=== PATIENT | male | born 1960 | race African-American/Black ===

== ENCOUNTER 2017-01-01 16:03 | Emergency (ER) | payer BC ==
[2017-01-01 16:27] VITALS: BP 142/81
--- NOTE | 2017-01-01 17:02 | UC ---
Respiratory Complaint HPI - HPI Summary HPI Summary: Started with coughing and nasal congestion about a month ago. Says he has continued to have "hot and cold chills" and feel ill the whole time. Now has increasing pain and pressure in face and increased coughing. - History of Current Complaint Chief Complaint: UCRespiratory Stated Complaint: FEVER, AND COUGH Time Seen by Provider: 01/01/17 16:45 Hx Obtained From: Patient Onset/Duration: Gradual Onset, Lasting Weeks Timing: Constant Severity Initially: Moderate Severity Currently: Moderate Character: Cough: Productive Aggravating Factors: Nothing Alleviating Factors: OTC Meds Associated Signs And Symptoms: Positive: URI, Nasal Congestion - Allergies/Home Medications Allergies/Adverse Reactions: Allergies Allergy/AdvReac Type Severity Reaction Status Date / Time No Known Allergies Allergy Verified 08/23/15 11:06 PMH/Surg Hx/FS Hx/Imm Hx Endocrine History Of: Denies: Diabetes, Thyroid Disease, Hyperthyroidism, Hypothyroidism, Dyslipidemia Cardiovascular History Of: Reports: Cardiac Disorders - POSSIBLE LEAKY VALVE, Hypertension Denies: Pacemaker/ICD, Myocardial Infarction, Congestive Heart Failure, Atrial Fibrillation, Deep Vein Thrombosis, Bleeding Disorders Respiratory History Of: Reports: Asthma Denies: COPD, Bronchitis, Pneumonia, Pulmonary Embolism GI/ History Of: Denies: Gastroesophageal Reflux, Ulcer, Gastrointestinal Bleed, Gall Bladder Disease, Kidney Stones, Diverticulitis, Renal Disease, Urosepsis Neurological History Of: Denies: TIA, CVA, Dementia, Seizures, Migraine Psychological History Of: Denies: Anxiety, Depression, Bipolar Disorder, Schizophrenia, Post Traumatic Stress Disorder Cancer History Of: Denies: Lung Cancer, Colorectal Cancer, Breast Cancer, Prostate Cancer, Cervical Cancer Other History Of: Negative For: HIV, Hepatitis B, Hepatitis C - He tested positive for hep C. He took Rx-clearing virus 2002, Anticoagulant Therapy - Surgical History Surgical History: Yes Surgery Procedure, Year, and Place: Lumbar surgery - 1998. wisdom teeth - Family History Known Family History: Positive: Cardiac Disease, Hypertension - Social History Alcohol Use: None Substance Use Type: None Smoking Status (MU): Light Every Day Tobacco Smoker Type: Cigarettes Amount Used/How Often: 1/2 PPD - Immunization History Most Recent Influenza Vaccination: never Most Recent Tetanus Shot: up to date Review of Systems Constitutional: Chills, Fatigue Skin: Negative Eyes: Negative ENT: Nasal Discharge Respiratory: Cough Cardiovascular: Negative Gastrointestinal: Negative Genitourinary: Negative Motor: Negative Neurovascular: Negative Musculoskeletal: Negative Neurological: Negative Psychological: Negative All Other Systems Reviewed And Are Negative: Yes Physical Exam Triage Information Reviewed: Yes Appearance: Well-Appearing, No Pain Distress, Well-Nourished Vital Signs: Initial Vital Signs Temp 99.4 F 01/01/17 16:23 Pulse 84 01/01/17 16:23 Resp 16 01/01/17 16:23 BP 142/81 01/01/17 16:23 Pulse Ox 97 01/01/17 16:23 Vital Signs Reviewed: Yes Eye Exam: Normal Eyes: Positive: Conjunctiva Clear ENT: Positive: Hearing grossly normal, Pharynx normal, Nasal congestion, Nasal drainage, TMs normal Dental Exam: Normal Neck exam: Normal Neck: Positive: Supple, Nontender, No Lymphadenopathy Respiratory Exam: Normal Respiratory: Positive: Chest non-tender, Lungs clear, Normal breath sounds, No respiratory distress, No accessory muscle use Cardiovascular: Positive: No Murmur Musculoskeletal Exam: Normal Neurological Exam: Normal Psychological Exam: Normal Skin Exam: Normal UC Diagnostic Evaluation - Laboratory O2 Sat by Pulse Oximetry: 97 Respiratory Course/Dx - Differential Dx/Diagnosis Provider Diagnoses: bacterial sinusitis Discharge - Discharge Plan Condition: Stable Disposition: HOME Prescriptions: Amoxicillin/Clavulanate TAB* [Augmentin TAB 875*] 875 mg PO BID #14 tab Guaifenesin-Codeine [Guaiatussin AC] 5 - 10 ml PO BEDTIME #120 ml MDD 10 Patient Education Materials: Rhinosinusitis (ED), Premature Atrial Contractions (ED) Forms: *Work Release Referrals: Selvin Barraza MD [Medical Doctor] - 2 Weeks Lady Mejia MD [Primary Care Provider] - If Needed
--- NOTE | 2017-01-01 17:37 | RAD ---
INDICATION: Cough and fever for one month. History of tobacco use. COMPARISON: October 09, 2016 TECHNIQUE: Dual energy PA and routine lateral views of the chest were obtained. REPORT: Elevated lung volumes and mild prominence of the interstitial markings. No focal pulmonary lesion, alveolar consolidation, pleural effusion, pneumothorax. The heart, pulmonary vasculature, and mediastinal contours are unremarkable. IMPRESSION: Stigmata of chronic obstructive pulmonary disease. No acute cardiopulmonary process evident.
== END 2017-01-01 18:04 | disposition home or self-care (01) ==
LOC: UCEAST 16:03
DX: J32.9 Chronic sinusitis, unspecified (principal); F17.210 Nicotine dependence, cigarettes, uncomplicated
CPT/HCPCS: 71020; 93005; 99212; G0463

== ENCOUNTER 2017-06-01 13:52 | Emergency (ER) | payer SELFPAY ==
[2017-06-01] MEDS ORDERED: Morphine INJ* 2 MG/ML 1 ML SYRINGE IV ONE ×2 (14:19→14:23)
[2017-06-01] MEDS ORDERED: NS 0.9% 1000 ML* 1,000 ML IV ONE (14:19)
[2017-06-01 14:30] VITALS: BP 173/94
--- NOTE | 2017-06-01 14:34 | UC ---
bonnie Noe Timothy, scribed for Jared Ro MD on 06/01/17 at 1406 . Truncal Trauma HPI - HPI Summary HPI Summary: Rob Chairez is a 56 yo male presenting to [facility] today with 10/10 pain in his chest wall and teeth since falling yesterday. He states he lost consciousness yesterday after a "one-hitter" which caused him to cough, and when he bent over to catch his breath he passed out. He states he hit his face on either the ground or a bench while unconscious. He reportedly was unable to verbalize to his partner where his pain was S/P the incident. She states that while she did not see any seizure activity, it is possible that this was his postictal state. His pain worsens with movement and deep breaths. He self-medicated with hydrocodone after the incident last night. He denies any neck pain. His MHx includes HTN, asthma, tobacco use, Hep C. - History Of Current Complaint Stated Complaint: FELL CHEST/MOUTH INJURY Time Seen by Provider: 06/01/17 14:01 Hx Obtained From: Patient Onset/Duration: Sudden Onset Onset Of Pain: Immediate Severity Initially: Moderate Severity Currently: Moderate Pain Intensity: 10 Pain Scale Used: 0-10 Numeric Mechanism Of Injury: Fall From A Standing Position Aggravating Factor(s): Movement, Deep Breathing Associated Signs And Symptoms: Positive: Chest Pain - Allergies/Home Medications Allergies/Adverse Reactions: Allergies Allergy/AdvReac Type Severity Reaction Status Date / Time No Known Allergies Allergy Verified 08/23/15 11:06 Home Medications: Home Medications Hydrocodone/Acetamin 10/325(NF [[place] 10/325 (NF)] 1 tab PO PRN 06/01/17 [ History] PMH/Surg Hx/FS Hx/Imm Hx Cardiovascular History: Hypertension Respiratory History: Asthma Other History Of: Hepatitis C - He tested positive for hep C. He took Rx- clearing virus 2002 Negative For: HIV, Hepatitis B, Anticoagulant Therapy - Surgical History Surgical History: Yes Surgery Procedure, Year, and Place: Lumbar surgery - 1998. wisdom teeth - Family History Known Family History: Positive: Cardiac Disease, Hypertension - Social History Alcohol Use: None Substance Use Type: Cocaine, Marijuana Substance Use Comment - Amount & Last Used: every day Smoking Status (MU): Light Every Day Tobacco Smoker Type: Cigarettes Amount Used/How Often: 1/2 PPD - Immunization History Most Recent Influenza Vaccination: never Most Recent Tetanus Shot: up to date Review of Systems Constitutional: Negative Skin: Negative Eyes: Negative ENT: Other - teeth pain Respiratory: Negative Cardiovascular: Chest Pain - trauma Gastrointestinal: Negative Genitourinary: Negative Motor: Negative Neurovascular: Negative Musculoskeletal: Negative Neurological: Other - syncope Psychological: Negative All Other Systems Reviewed And Are Negative: Yes Physical Exam Triage Information Reviewed: Yes Vital Signs: Initial Vital Signs Temp 98.8 F 06/01/17 14:23 Pulse 67 06/01/17 14:23 Resp 16 06/01/17 14:23 BP 173/94 06/01/17 14:23 Pulse Ox 98 06/01/17 14:23 Vital Signs Reviewed: Yes - Additional Comments The patient is well-nourished in no acute distress and in no acute pain. The skin is warm and diaphoretic and skin color reflects adequate perfusion. HEENT: The head is normocephalic and atraumatic. The pupils are equal and reactive. The conjunctivae are clear and without drainage. Nares are patent and without drainage. Mouth reveals moist mucous membranes and the throat is without erythema and exudate. The external ears are intact. The ear canals are patent and without drainage. The tympanic membranes are intact. Front teeth avulsed, laceration left side of lip. There is no racoon's sign, no willis's sign, no hemotympanum. Neck is supple with full range of motion and non-tender. There are no carotid bruits. There is no neck vein distension. Respiratory: Lungs are clear to auscultation, there are diminished breath sounds. Cardiovascular: Heart is regular rate and rhythm. There is no murmur or rub auscultated. There is no peripheral edema and pulses are symmetrical and equal. Abdomen: The abdomen is soft and non-tender. There are normal bowel sounds heard in all four quadrants and there is no organomegaly palpated. Musculoskeletal: There is no back pain noted. Extremities are non-tender with full range of motion. There is good capillary refill. There is no peripheral edema or calf tenderness elicited. There is marked tenderness of the right lateral ribs, RUQ, and right epigastric region. There is no hip pain or extremity trauma. Neurological: Patient is alert and oriented to person, place and time. The patient has symmetrical motor strength in all four extremities. Cranial nerves are grossly intact. Deep tendon reflexes are symmetrical and equal in all four extremities. Psychiatric: The patient has an appropriate affect and does not exhibit any anxiety or depression. Diagnostics - EKG Cardiac Rate: NL - 1354: NSR @ 65 BPM, left axis, no STEMI Truncal Trauma Course/Dx - Course Course Of Treatment: Rob Chairez is a 56 yo male presenting to [facility] with 10/10 pain in his ribs and teeth after a syncopal episode yesterday when he hit his head and chest on a bench. Pt medication list reviewed this visit. After clinical examination, Pt advised to present to [facility] for evaluation as services provided by urgent care will not be sufficient to evaluate Pt. Due to syncopal episode, there is cocnern for Pt's cardiac and neurological status. Pt has injuries to chest and abd, and there is concern his condition will deteriorate if he travels to [facility] by private car. Uncertain of extent of Pt's injuries and failure to transport Pt in a timely manner may lead to worsening of his condition. Pt should be monitored at all times due to his syncopal episode. Pt accepts offer of EMS for transport to [facility]. He will be transferred to [facility] by ambulance. - Differential Dx/Diagnosis Differential Diagnosis/HQI/PQRI: Cardiac Contusion, Chest Wall Contusion, Liver Trauma, Pulmonary Contusion, Rib Fracture, Other - syncope, substance abuse Provider Diagnoses: syncope, facial trauma, chest trauma, abdominal trauma Discharge - Discharge Plan Condition: Stable Disposition: TRANS HIGHER L OF CARE FAC Discharge Disposition Comment: transfer to [facility] by ambulance Referrals: Lady Mejia MD [Primary Care Provider] - The documentation as recorded by the bonnie cameron Timothy accurately reflects the service I personally performed and the decisions made by , Jared Ro MD.
== END 2017-06-01 14:50 | disposition short-term general hospital (02) ==
LOC: UCEAST 13:52
DX: R55 Syncope and collapse (principal); S29.9XXA Unspecified injury of thorax, initial encounter; S39.91XA Unspecified injury of abdomen, initial encounter; S09.93XA Unspecified injury of face, initial encounter; Y04.0XXA Assault by unarmed brawl or fight, initial encounter; Y93.9 Activity, unspecified; Y92.9 Unspecified place or not applicable; Y99.9 Unspecified external cause status; Z72.0 Tobacco use
CPT/HCPCS: 93005; 96361; 96374; 99213; G0463; J2270

== ENCOUNTER 2017-06-01 15:26 | Emergency (ER) | payer SELFPAY ==
--- NOTE | 2017-06-01 16:18 | ED ---
Syncope/Near Syncope - HPI Summary HPI Summary: 56 male presenting to ED from with 10/10 pain in his right chest/rib/RUQ and front teeth since falling yesterday 05/31/17. He states he lost consciousness yesterday after a "one-hitter" of marijuana per patient which caused him to cough, and when he bent over to catch his breath he passed out. He states he hit his face on either the ground or a bench while unconscious. He reportedly was unable to verbalize to his partner where his pain was S/P the incident. Unknown length of unconsciousness. His pain worsens with movement and deep breaths. He self-medicated with hydrocodone after the incident last night without relief. No medication today besides morphine which he states he received at [facility]. He denies any neck pain. His PMHx includes HTN, asthma, tobacco use, Hep C. Later at visit arrived stating patient does use cocaine. was clean for 6 months until he started using again. states he last used on . Patient however did have a glass ampule of drugs he is unsure of last night which caused his syncopal episode. - History Of Current Complaint Time Seen by Provider: 06/01/17 15:38 Hx Obtained From: Patient, Family/Taxicab Dispatcher - , Other: - , EMS Onset/Duration: Sudden Onset, Lasting Days - 1, Still Present Timing: Constant Context: Witnessed - by , Loss Of Consciousness Activity At Onset: Exertion - coughing Associated Head Trauma: Yes Aggravating Factor(s): Nothing Alleviating Factor(s): Nothing Associated Signs And Symptoms: Negative - Risk Factors Cardiac Risk Factors: Hypertension Dysrhythmia Risk Factors: Age Greater Than 45 - Allergies/Home Medications Allergies/Adverse Reactions: Allergies Allergy/AdvReac Type Severity Reaction Status Date / Time No Known Allergies Allergy Verified 08/23/15 11:06 PMH/Surg Hx/FS Hx/Imm Hx Endocrine/Hematology History: Denies: Hx Anticoagulant Therapy, Hx Diabetes, Hx Thyroid Disease Cardiovascular History: Reports: Hx Hypertension Denies: Hx Congestive Heart Failure, Hx Deep Vein Thrombosis, Hx Myocardial Infarction, Hx Pacemaker/ICD Respiratory History: Reports: Hx Asthma Denies: Hx Chronic Obstructive Pulmonary Disease (COPD), Hx Lung Cancer, Hx Pneumonia, Hx Pulmonary Embolism, Other Respiratory Problems/Disorders GI History: Denies: Hx Gall Bladder Disease, Hx Gastrointestinal Bleed, Hx Ulcer, Hx Urosepsis History: Denies: Hx Kidney Stones, Hx Renal Disease Neurological History: Denies: Hx Dementia, Hx Migraine, Hx Seizures, Hx Transient Ischemic Attacks (TIA) Psychiatric History: Denies: Hx Anxiety, Hx Depression, Hx Schizophrenia, Hx Bipolar Disorder - Surgical History Surgery Procedure, Year, and Place: Lumbar surgery - 1998. wisdom teeth - Immunization History Immunizations Up to Date: Yes Infectious Disease History: Reports: Hx Hepatitis - C - treated Denies: History Other Infectious Disease, Traveled Outside the [place] in Last 30 Days - Family History Known Family History: Positive: Cardiac Disease, Hypertension - Social History Alcohol Use: None Substance Use Type: Reports: Cocaine, Marijuana Substance Use Comment - Amount & Last Used: every day Hx Tobacco Use: Yes Smoking Status (MU): Light Every Day Tobacco Smoker Type: Cigarettes Amount Used/How Often: 1/2 PPD Review of Systems Constitutional: Negative Eyes: Negative ENT: Negative Positive: Chest Pain - chest wall/right rib pain Respiratory: Negative Positive: Abdominal Pain - RUQ Positive: Arthralgia, Myalgia - right rib Skin: Negative Neurological: Negative All Other Systems Reviewed And Are Negative: Yes Physical Exam Triage Information Reviewed: Yes Vital Signs On Initial Exam: temp: 98.2 HR:63 BP:153/80 O2:96 Resp:16 Appearance: Positive: Well-Appearing, Well-Nourished, Pain Distress - moderate pain distress with moving, laughing, coughing and papation of right rib/RUQ Skin: Positive: Warm, Skin Color Reflects Adequate Perfusion, Dry. Negative: Cold, Tender, Cyanosis @, Pale Head/Face: Positive: Normal Head/Face Inspection, Other - no hematoma, epistaxis , racoon eyes or battles sign, tenderness over top lip maxilla area, under nose on palpation. Eyes: Positive: EOMI, DARIELA - constricted b/l, Conjunctiva Clear ENT: Positive: Normal ENT inspection, Hearing grossly normal, Pharynx normal, TMs normal Dental: Positive: Gross Decay/Caries @, Dental Fracture @, Other - abrasion to inner top lip from impact, sore Neck: Positive: Supple, Nontender, No Lymphadenopathy Respiratory/Lung Sounds: Positive: Clear to Auscultation, Breath Sounds Present. Negative: Decreased Breath Sounds, Rales, Rhonchi, Wheezes Cardiovascular: Positive: Normal, RRR, Pulses are Symmetrical in both Upper and Lower Extremities. Negative: Murmur, Rub, Leg Edema Left, Leg Edema Right Abdomen Description: Positive: No Organomegaly, Soft, Other: - RUQ tenderness on palpation. Negative: Bruit, CVA Tenderness (R), CVA Tenderness (L), Distended, Guarding, Peritoneal Signs Bowel Sounds: Positive: Present Musculoskeletal: Positive: Normal, Strength/ROM Intact, Pain @ - right rib at 10 -12th with palpation and movement, Other - no step off crepitus or obvious deformity noted. Negative: Limited @, Interruption @ Neurological: Positive: Normal, Sensory/Motor Intact, Alert, Oriented to Person Place, Time, CN Intact II-III, Reflexes Intact, NV Bundle Intact Distally, Normal Gait, Heel to Toe - normal, Facial Symmetry, Speech Normal Psychiatric: Positive: Affect/Mood Appropriate - Gabriela Coma Scale Best Eye Response: 4 - Spontaneous Best Motor Response: 6 - Obeys Commands Best Verbal Response: 5 - Oriented Diagnostics - Laboratory Result Diagrams: 06/01/17 14:26 06/01/17 14:26 Lab Statement: Any lab studies that have been ordered have been reviewed, and results considered in the medical decision making process. - Radiology chest Xray Interpretation: No Acute Changes - NO ACTIVE DISEASE. Radiology Interpretation Completed By: Radiologist ribs Xray Interpretation: No Acute Changes - NEGATIVE EXAMINATION. Radiology Interpretation Completed By: Radiologist - CT chest/abd CT Interpretation: No Acute Changes - noncontrast imaging demonstrates no acute findings CT Interpretation Completed By: Radiologist maxillofacial CT Interpretation: Positive (See Comments) - SUSPECT SMALL AVULSION FRACTURES OF THE NASAL PROCESS OF THE MAXILLA. NO OTHER APPARENT NASAL BONE FRACTURES. CT Interpretation Completed By: Radiologist brain CT Interpretation: No Acute Changes - No acute CT findings.. CT Interpretation Completed By: Radiologist - EKG EKG Cardiac Rate: NL EKG Rhythm: Sinus Rhythm ST Segment: Normal EKG Interpretation: NSR EKG Comparison: No Significant Change Re-Evaluation - Re-Evaluation First Eval Re-Evaluation Time: 17:32 Change: Unchanged - pain is still present after 4 mg of morphine given at however he is still in pain asking for more. after getting labs and imaging back without findings patient will be given toradol at this time. Course/Dx Course Of Treatment: patient recieved 4mg of morphine at and states he still has pain. obtained labs and urinalysis, syncope work up. due to complaints of hitting head and face obtained Ct maxillofacial and brain. Also due to right rib RUQ pain obtained chest, rib and abd. All images were unremarkable. Labs unremarkable. Ordered drox toxicology after recieving new information from about drug use. No concern for seizure, cardiac or respiratory issue causing yesterday syncopal episode at this time. normal EKG. Given toradol for complaints of pain. Due to patient's pain being in RUQ are and was not releived , did an US to rule out gallbladder, although patient had no other symptoms resembing cholecystitis. Awaiting results and remaining lab results/tox screen. Was signed out to Margi CARBAJAL at 5:45pm at shift change. - Diagnoses Provider Diagnoses: Syncope, Substance abuse, Rib pain on right side, Abdominal pain - Physician Notifications Discussed Care of Patient With: Margi Carrera - sign out at shift change Time Discussed With Above Provider: 17:30 Discharge - Discharge Plan Condition: Stable Disposition: HOME Discharge Disposition Comment: sign out to Margi Carrera at shift change around 5: 30pm Patient Education Materials: Syncope (ED), Abdominal Pain (ED) Referrals: Be Phan MD [Medical Doctor] - Lady Mejia MD [Primary Care Provider] - Additional Instructions: Drink plenty of fluids Take ibuprofen or tyenlol for pain every 6 hours Eat bland diet until symptoms resolve Follow up with primary within 5 days Return to ED if develop any new or worsening symptoms
[2017-06-01 16:49] LABS: Hematocrit 47 % (42-52); Hemoglobin 15.2 g/dl (14.0-18.0); Mean Corpuscular HGB Conc 33 g/dl (31-36); Mean Corpuscular Hemoglobin 29 pg (27-31); Mean Corpuscular Volume 89 fL (80-94); Mean Platelet Volume 11 um3 (7.4-10.4); Red Blood Count 5.24 10^6/ul (4.0-5.4); Red Cell Distribution Width 14 % (10.5-15); White Blood Count 10.4 10^3/ul (3.5-10.8)
--- NOTE | 2017-06-01 16:57 | RAD ---
INDICATION: Right chest wall pain COMPARISON: January 01, 2017 TECHNIQUE: PA and lateral dual-energy views were obtained. FINDINGS: Bones/Soft Tissues: There are no acute bony findings. Cardiomediastinal: The cardiomediastinal silhouette is normal. Lungs: There are no infiltrates. Pleura: There are no pleural effusions. Other: None IMPRESSION: NO ACTIVE DISEASE.
[2017-06-01 17:04] LABS: Troponin I 0.02 ng/mL (<0.04)
--- NOTE | 2017-06-01 17:05 | RAD ---
INDICATION: Syncope. Right rib pain after fall. Request for CT of the chest and abdomen, CT brain, CT maxillofacial, chest x-ray, right ribs. COMPARISON: Chest x-ray January 01, 2017. Above related examinations. TECHNIQUE: Axial source images were obtained from the thoracic inlet to the symphysis pubis. The examination was ordered without oral and intravenous contrast limiting evaluation of solid pelvic viscera. Coronal and sagittal reconstructed images were acquired. CHEST FINDINGS: Neck/thyroid: The visualized neck to include the thyroid appear normal. Chest wall: There are no acute abnormalities of the bony thorax or chest wall. There is no supraclavicular, infraclavicular, or axillary lymphadenopathy. Lungs : Mild basilar atelectasis left greater than right. Bull[place] left upper lobe. Lungs otherwise clear. No pneumothorax.. Cardiomediastinal structures: Normal noncontrast CT of the mediastinum. No adenopathy. No pericardial effusion. No mediastinal hematoma. Pleura : There are no pleural-based masses or effusions. ABDOMINAL/PELVIC FINDINGS: Liver: No CT abnormalities on noncontrast evaluation.. Gallbladder: There are no calcified gallstones. There is no evidence of wall thickening or pericholecystic fluid. Spleen: No CT abnormalities on noncontrast evaluation.. Pancreas: Normal noncontrast CT appearance. Adrenal glands: No adrenal mass. Kidneys: Normal noncontrast CT appearance of the kidneys. Adenopathy: No gross adenopathy. Fluid collections: There are no free or localized fluid collections. Vessels: Normal noncontrast CT appearance given the patient's stated age. Scant intimal calcifications of the aorta and visualized iliac vessels. GI tract: Limited noncontrast evaluation demonstrates no evidence of free air or obstruction. No CT findings to suggest bowel injury. Soft tissues: No acute soft tissue abnormalities Osseous structures: There are no acute osseous findings. IMPRESSION: NONCONTRAST IMAGING DEMONSTRATES NO ACUTE CT FINDINGS.
--- NOTE | 2017-06-01 17:07 | RAD ---
INDICATION: Fall. Facial injury. COMPARISON: None TECHNIQUE: Axial source images were acquired from the vertex of the mandible through the orbits. Coronal and sagittal reconstructed images were acquired. FINDINGS: Bones: There is suspected small avulsion fractures from the nasal process of the maxilla. There is no other evidence of acute facial bone fracture. Orbits: The globes and intraconal structures appear intact. The optic nerves are symmetric. Extraocular muscles appear normal. There is no intraconal inflammatory change or retrobulbar mass.. Paranasal sinuses: The paranasal sinuses are clear. Brain: There are no acute abnormalities of the visualized brain parenchyma. Soft tissues: Normal Other: None The visualized soft tissue elements about the neck appear normal. IMPRESSION: SUSPECT SMALL AVULSION FRACTURES OF THE NASAL PROCESS OF THE MAXILLA. NO OTHER APPARENT NASAL BONE FRACTURES.
--- NOTE | 2017-06-01 17:08 | RAD ---
INDICATION: Right rib injury COMPARISON: Chest x-ray same date TECHNIQUE: Multiple views of the ribs were obtained. FINDINGS: Bones: There is no evidence of acute rib fracture. LUNGS: The lungs are clear. There is no pneumothorax. Pleural spaces: There is no evidence of hemothorax. Other: None IMPRESSION: NEGATIVE EXAMINATION.
--- NOTE | 2017-06-01 17:09 | RAD ---
INDICATION: Fall. Syncope. COMPARISON: None TECHNIQUE: Noncontrast axial source images were acquired from the skull base to the vertex. FINDINGS: Ventricles/sulci: The ventricles and cisterns are normal in size and configuration for age. Brain parenchyma: There is no focal parenchymal finding, evidence of intracranial mass, or intracranial mass effect. Intracranial hemorrhage:None. Extra-axial spaces: There are no abnormal extra axial fluid collections or evidence of extra-axial mass. Calvarium: There is no calvarial fracture or other calvarial abnormality. Scalp: There is no evidence of scalp or extracalvarial soft tissue abnormality. Paranasal sinuses/mastoid: The paranasal sinuses and mastoid air cells are clear. Other: None. IMPRESSION: No acute CT findings..
[2017-06-01 17:11] LABS: TSH (Thyroid Stimulating Horm) 0.59 mcIU/mL (0.34-5.60)
[2017-06-01] MEDS ORDERED: Ketorolac INJ* 30 MG/ML 1 ML VIAL IM ONE (17:29)
[2017-06-01] MEDS ORDERED: Ketorolac INJ* 30 MG/ML 1 ML VIAL IV PUSH ONE (17:30)
--- NOTE | 2017-06-01 18:06 | RAD ---
INDICATION: ] Right upper quadrant pain COMPARISON: CT chest/abdomen/pelvis same date TECHNIQUE: Longitudinal and transverse scans of the right upper quadrant were obtained. Doppler interrogation of the hepatic and portal venous system was performed. FINDINGS: Liver: The liver is top normal in size. The echogenicity is normal. There are no focal masses. The liver measures 18 cm in cephalocaudal dimension. Vessels: There is normal hepatic and portal venous flow. Bile ducts: There is no evidence of intrahepatic or extrahepatic ductal dilatation. The common duct measures 0.4 cm. Gallbladder: The sonographic appearance of the gallbladder is normal. There is no evidence of cholelithiasis, thickening of the gallbladder wall, or pericholecystic fluid. Pancreas: Not seen due to interfering bowel gas Right kidney: The right kidney is normal in size and echogenicity. There are no masses or calculi. There is no evidence of hydronephrosis. The right kidney measures 11.1 x 4.2 x 5.0 cm. IVC and aorta: The aorta and superior vena cava appear normal. Fluid: There is no ascites. Other: None. IMPRESSION: NORMAL GALLBLADDER.. NORMAL LIVER SIZE
--- NOTE | 2017-06-01 18:37 | PN ---
Progress Note - Progress Note Date of Service: 06/01/17 Note: signed out by Celine pending labs and u/s Gallbladder u/s normal labs normal wbc, cmp explained results to patient that can not determine abdominal pain vs rib wall pain told to take ibuprofen. syncope work up normal. likely from drug use. urine drug screen was cancelled by lab. Diagnosis: abdominal pain, syncope Condition:Stable disposition: home
[2017-06-01 18:53] LABS: BUN/Creatinine Ratio 7.6 (8-20); Calcium 9.3 mg/dL (8.6-10.3); EGFR African American 109.4 (>60); EGFR Non-African American 85.1 (>60)
[2017-06-01 18:54] LABS: Albumin 3.9 g/dL (3.2-5.2); Globulin 2.9 g/dL (2-4); Total Bilirubin 0.9 mg/dL (0.2-1.0); Total Protein 6.8 g/dL (6.4-8.9)
[2017-06-01 19:01] LABS: Urine Bilirubin Negative (Negative); Urine Glucose Negative (Negative); Urine Nitrite Negative (Negative)
[2017-06-01 19:48] LABS: Anion Gap 14 mmol/L (2-11); EGFR African American 99.4 (>60); EGFR Non-African American 77.3 (>60); Manual Entry Verification MD; POC CO2 Carbon Dioxide 27 mmol/L (24-29); POC Chloride 99 mmol/L (98-109); POC Glucose 155 mg/dL (70-105); POC Potassium 3.2 mmol/L (3.5-4.9); POC Sodium 140 mmol/L (138-146)
[2017-06-01 19:58] VITALS: BP 138/80
== END 2017-06-01 19:58 | disposition home or self-care (01) ==
LOC: ED 15:26
DX: R55 Syncope and collapse (principal); R10.11 Right upper quadrant pain; R07.89 Other chest pain; F17.210 Nicotine dependence, cigarettes, uncomplicated; R07.9 Chest pain, unspecified; F19.10 Other psychoactive substance abuse, uncomplicated
CPT/HCPCS: 36415; 70450; 70486; 71020; 71250; 74150; 76705; 80048; 80053; 81003; 83735; 84443; 84484; 85025; 93005; 96372; 96375; 99282; J1885

== ENCOUNTER 2017-07-28 05:03 | Emergency (ER) | payer MEDICAID ==
--- NOTE | 2017-07-28 07:43 | ED ---
Devi Noe Nilda, scribed for Caio Victoria MD on 07/28/17 at 0715 . Substance Abuse/Use - HPI Summary HPI Summary: Pt is a 56 y/o M BIBA who presents to ED s/p heroin OD. At approximately 0200 this morning, the pt reports trying heroin after being urged by his friends to do so. EMS were called after the pt became unresponsive. 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 Aggravating Factor(s): Nothing Alleviating Factor(s): Nothing - Allergies/Home Medications Allergies/Adverse Reactions: Allergies Allergy/AdvReac Type Severity Reaction Status Date / Time No Known Allergies Allergy Verified 08/23/15 11:06 PMH/Surg Hx/FS Hx/Imm Hx Endocrine/Hematology History: Denies: Hx Anticoagulant Therapy, Hx Diabetes, Hx Thyroid Disease Cardiovascular History: Reports: Hx Hypertension Denies: Hx Congestive Heart Failure, Hx Deep Vein Thrombosis, Hx Myocardial Infarction, Hx Pacemaker/ICD Respiratory History: Reports: Hx Asthma Denies: Hx Chronic Obstructive Pulmonary Disease (COPD), Hx Lung Cancer, Hx Pneumonia, Hx Pulmonary Embolism, Other Respiratory Problems/Disorders GI History: Denies: Hx Gall Bladder Disease, Hx Gastrointestinal Bleed, Hx Ulcer, Hx Urosepsis History: Denies: Hx Kidney Stones, Hx Renal Disease Neurological History: Denies: Hx Dementia, Hx Migraine, Hx Seizures, Hx Transient Ischemic Attacks (TIA) Psychiatric History: Denies: Hx Anxiety, Hx Depression, Hx Schizophrenia, Hx Bipolar Disorder - Surgical History Surgery Procedure, Year, and Place: Lumbar surgery - 1998. wisdom teeth Infectious Disease History: No Infectious Disease History: Reports: Hx Hepatitis - C - treated Denies: History Other Infectious Disease, Traveled Outside the [place] in Last 30 Days - Family History Known Family History: Positive: Cardiac Disease, Hypertension - Social History Alcohol Use: Occasionally Alcohol Amount: 2 24 oz cans a beer twice a week Substance Use Type: Reports: Cocaine, Marijuana Substance Use Comment - Amount & Last Used: every day Hx Tobacco Use: Yes Smoking Status (MU): Heavy Every Day Tobacco Smoker Type: Cigarettes Amount Used/How Often: 1/2 PPD Review of Systems Negative: Fever Neurological: Other - Unresponsive 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 All Other Systems Reviewed And Are Negative: Yes Physical Exam - Summary Physical Exam Summary: Skin: warm, color reflects adequate perfusion, dry Head: normal Eyes: 3 mm pupils, minimally reactive to light ENT: normal Neck: supple, nontender Respiratory: CTA, breath sounds present Cardiovascular: RRR Abdomen: soft, nontender Bowel: present Musculoskeletal: normal, strength/ROM intact, moves all extremities Neurological: stuporous, arousal to voice Triage Information Reviewed: Yes Vital Signs On Initial Exam: Initial Vitals Temp Pulse Resp BP Pulse Ox 98.8 F 79 18 111/74 94 07/28/17 05:08 07/28/17 05:08 07/28/17 05:08 07/28/17 05:08 07/28/17 05:08 Vital Signs Reviewed: Yes - [place] Coma Scale Coma Scale Total: 15 Diagnostics - Vital Signs Vital Signs Temp Pulse Resp BP Pulse Ox 07/28/17 06:19 78 20 118/83 97 07/28/17 06:16 78 97 07/28/17 05:08 98.8 F 79 18 111/74 94 - Laboratory Lab Statement: Any lab studies that have been ordered have been reviewed, and results considered in the medical decision making process. Course/Dx - Course Course Of Treatment: PATIENT SLEPT IN ED. NO CRITICAL CARE TIME. Assessment/Plan: Medications reviewed this visit. - Diagnoses Provider Diagnoses: Heroin overdose Discharge - Discharge Plan Condition: Stable Disposition: HOME Patient Education Materials: Narcotic Abuse (ED) Referrals: Lady Mejia MD [Primary Care Provider] - [facility] DR[facility] [Outside] [facility] [Outside] Additional Instructions: FOLLOW UP WITH YOUR DOCTOR. RETURN TO THE EMERGENCY DEPARTMENT FOR ANY WORSENING OF YOUR CONDITION OR QUESTIONS OR CONCERNS. The documentation as recorded by the Devi cameron Nilda accurately reflects the service I personally performed and the decisions made by me, Caio Victoria MD.
[2017-07-28 11:08] VITALS: BP 119/74
--- NOTE | 2017-07-31 14:58 | ED ---
Hector Noe Thomas, scribed for Jordan Corey MD on 07/28/17 at 1044 . Progress - Progress Note Progress Note: The patient is a sign out from Dr. Victoria to Dr. Corey at shift change. At re-evaluation at 10:23, the patient is alert and talking. The patient is diagnosed with heroin overdose. The patient is stable and will be discharged home. Course/Dx - Diagnoses Provider Diagnoses: Heroin overdose The documentation as recorded by the Hector cameron Thomas accurately reflects the service I personally performed and the decisions made by aMdhav enrique Jerry, MD.
== END 2017-07-28 11:08 | disposition home or self-care (01) ==
LOC: ED 05:03
DX: T40.1X1A Poisoning by heroin, accidental (unintentional), initial encounter (principal); Y92.9 Unspecified place or not applicable; F17.210 Nicotine dependence, cigarettes, uncomplicated
CPT/HCPCS: 99282